=== PATIENT | male | born 1935 | race Caucasian/White ===

== ENCOUNTER → 2018-04-08 | Outpatient (CLI) | payer OTHER ==
[~2018-04-08] MED LIST: AMITRIPTYLINE H25 M2 PO; AUGMENTIN 875875 MG PO; BAYER CHEWABLE81 MG PO; FLEXERIL PO; FLOMAX0.4 MG PO; FLORINEF ACETA0.1 MG PO; GLUCOPHAGE500 MG PO; LEVOTHYROXIN0.125 M1 PO; LIPITOR40 MG PO; MECLIZINE HCL25 MG PO; MIDODRINE HCL 55 M1 PO; NAMENDA XR28 MG PO; NAPROSYN500 MG PO; RANEXA500 MG PO; VITAMIN D1000 UNI1 PO
== END ==
LOC: M.ULTRA 04-01 13:00
DX: I65.23 Occlusion and stenosis of bilateral carotid arteries (principal); E11.9 Type 2 diabetes mellitus without complications; E03.9 Hypothyroidism, unspecified

== ENCOUNTER → 2018-10-04 | Outpatient (CLI) | payer OTHER ==
[2018-10-04 15:21] LABS: ABSOLUTE EOSINOPHILS 0.1 thou/uL (0.0-0.7); ABSOLUTE LYMPHOCYTES 1.4 thou/uL (0.8-5.3); ABSOLUTE MONOCYTES 0.5 thou/uL (0.0-1.2); ABSOLUTE NEUTROPHILS 4.7 thou/uL (1.6-8.1); BASOPHILS 0.3 %; EOSINOPHILS 1.4 %; HEMATOCRIT 39.8 % (42.0-52.0); HEMOGLOBIN 13.6 gm/dL (14.0-18.0); LYMPHOCYTES 20.9 %; MCH 32.7 pg (26.0-34.0); MCHC 34.1 g/dL (28.0-37.0); MCV 95.7 fL (80.0-100.0); MONOCYTES 7.7 %; MPV 7.4 fl. (7.2-11.1); NUCLEATED RBCS 0 /100WBC; PLATELET COUNT* 189 thou/uL (150-400); POLYS 69.7 %; RBC 4.15 mil/uL (4.50-6.00); RDW-CV 13.4 % (10.5-14.5); WBC 6.7 thou/uL (4.0-11.0)
== END ==
LOC: M.LAB 14:54
PROVIDERS: Nurse Practitioner
DX: E03.9 Hypothyroidism, unspecified (principal); R53.83 Other fatigue

== ENCOUNTER 2018-11-02 12:15 | Inpatient (IN) | payer OTHER ==
[~2018-11-02] VITALS: Ht 172.7 cm; Wt 88.0 kg
[2018-11-02 12:47] VITALS: BP 98/63
[2018-11-02 13:46] LABS: URINE BILIRUBIN NEGATIVE (Negative); URINE BLOOD TRACE (Negative); URINE CLARITY CLEAR; URINE COLOR YELLOW; URINE GLUCOSE-RANDOM 3+ (Negative); URINE KETONES NEGATIVE (Negative); URINE LEUKOCYTES-REFLEX NEGATIVE (Negative); URINE NITRITE-REFLEX NEGATIVE (Negative); URINE PROTEIN NEGATIVE (Negative); URINE UROBILINOGEN 0.2 E.U./dl (0.2-1.0)
[2018-11-02 13:54] LABS: ABSOLUTE EOSINOPHILS 0.1 thou/uL (0.0-0.7); ABSOLUTE LYMPHOCYTES 1.2 thou/uL (0.8-5.3); ABSOLUTE MONOCYTES 0.4 thou/uL (0.0-1.2); ABSOLUTE NEUTROPHILS 4.5 thou/uL (1.6-8.1); BASOPHILS 0.6 %; EOSINOPHILS 1.1 %; HEMATOCRIT 38.4 % (42.0-52.0); HEMOGLOBIN 13.1 gm/dL (14.0-18.0); LYMPHOCYTES 19.5 %; MCH 32.7 pg (26.0-34.0); MCHC 34.1 g/dL (28.0-37.0); MCV 95.9 fL (80.0-100.0); MPV 7.6 fl. (7.2-11.1); NUCLEATED RBCS 0 /100WBC; PLATELET COUNT* 174 thou/uL (150-400); POLYS 71.8 %; RBC 4.01 mil/uL (4.50-6.00); RDW-CV 13.2 % (10.5-14.5); WBC 6.3 thou/uL (4.0-11.0)
[2018-11-02 14:12] LABS: ANION GAP 4 mmol/L (7-16); BUN 19 mg/dL (7-18); CHLORIDE 104 mmol/L (98-107); CO2 34 mmol/L (21-32); CREATININE 1.3 mg/dL (0.6-1.3); GLUCOSE 88 mg/dL (70-99); POTASSIUM 4.4 mmol/L (3.5-5.1); SODIUM 142 mmol/L (136-145); TROPONIN-I LEVEL <0.06 ng/mL (<0.06)
[2018-11-02 14:14] LABS: ALBUMIN 3.6 g/dL (3.4-5.0); ALKALINE PHOSPHATASE 119 U/L (46-116); NT-PRO BRAIN NAT PEPTIDE 135 pg/mL (<300); SGOT 17 U/L (15-37); SGPT 21 U/L (30-65); TOTAL BILIRUBIN 1.7 mg/dL (<0.1-1.0); TOTAL PROTEIN 6.9 g/dL (6.4-8.2)
--- NOTE | 2018-11-02 15:10 | NUR ---
PT REQUESTING FOOD, THIS WAS OK'D BY PROVIDER. PT GIVEN TURKEY SANDWICH AND POTATO CHIPS WITH WATER. PT ABLE TO FEED HIMSELF
--- NOTE | 2018-11-02 16:54 | EKG ---
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 11/02/18 1653 1336 1336 Norm Faust MD, FACC /EPI
--- NOTE | 2018-11-02 17:10 | NUR ---
PT STATED HE HIS BM WAS BLACK AT HIS BM AT 1620. THIS WAS NOTED IN YOUCALLMD TO DR. LY
--- NOTE | 2018-11-02 17:18 | NUR ---
SPOKE WITH DR. LY ON PHONE
--- NOTE | 2018-11-02 18:21 | NUR ---
PT GIVEN DINNER
[2018-11-02 18:48] VITALS: BP 127/65
[2018-11-02 20:00] VITALS: BP 126/57
[2018-11-02 21:00] VITALS: BP 119/67
--- NOTE | 2018-11-03 04:21 | NUR ---
PT ARRIVED FROM ER AT AROUND 2129. ASSESSMENT COMPLETED CHARTED. ABLE TO MAKE NEEDS KNOWN. NO C/O PAIN OR DISCOMFORT. UP WITH STANDBY ASSIST FOR USING URINAL AND GOING TO THE RESTROOM. DOESNT KNOW WHY HES HERE OR WHAT YEAR IT IS. IS RESTING IN BED AT THIS TIME BUT UNABLE TO SLEEP. WILL CONTINUE TO MONITOR.
[2018-11-03 05:20] LABS: ABSOLUTE EOSINOPHILS 0.1 thou/uL (0.0-0.7); ABSOLUTE LYMPHOCYTES 1.4 thou/uL (0.8-5.3); ABSOLUTE MONOCYTES 0.6 thou/uL (0.0-1.2); BASOPHILS 0.3 %; EOSINOPHILS 1.5 %; HEMATOCRIT 35.1 % (42.0-52.0); HEMOGLOBIN 11.9 gm/dL (14.0-18.0); LYMPHOCYTES 20.1 %; MCH 32.5 pg (26.0-34.0); MCV 95.6 fL (80.0-100.0); MONOCYTES 7.8 %; MPV 8.2 fl. (7.2-11.1); NUCLEATED RBCS 0 /100WBC; PLATELET COUNT* 152 thou/uL (150-400); POLYS 70.3 %; RBC 3.67 mil/uL (4.50-6.00); RDW-CV 13.3 % (10.5-14.5); WBC 7.1 thou/uL (4.0-11.0)
[2018-11-03 05:51] LABS: ANION GAP 7 mmol/L (7-16); BUN 16 mg/dL (7-18); CALCIUM 8.7 mg/dL (8.5-10.1); CHLORIDE 108 mmol/L (98-107); CO2 29 mmol/L (21-32); GLUCOSE 119 mg/dL (70-99); MAGNESIUM 1.8 mg/dL (1.8-2.4); POTASSIUM 3.9 mmol/L (3.5-5.1); SODIUM 144 mmol/L (136-145); TROPONIN-I LEVEL <0.06 ng/mL (<0.06)
[2018-11-03 08:15] VITALS: BP 119/66
--- NOTE | 2018-11-03 10:56 | NUR ---
Pt is A&O. Resides at home with his . Active and independent. No DME. No hx of HH or SNF. Goal is home at dc, no needs anticipated.
[2018-11-03 12:00] VITALS: BP 141/70
--- NOTE | 2018-11-03 13:29 | 2DMMODE ---
[place] [address] 2 D/M-MODE ECHOCARDIOGRAM Name: MASOOD Deysi Room: [address] IN [facility]#: [id number] Admission: 11/02/18 Attend Phys: Cleemnt Avalos MD Discharge: Date of : 39 Date of Service: 11/03/18 1329 Report #: [id number] THIS REPORT FOR: //name// APPROVED REPORT Study performed: 11/03/2018 10:44:40 EXAM: Comprehensive 2D, Doppler, and color-flow Echocardiogram Patient Location: In-Patient Room #: [facility] Status: routine BSA: 2.02 HR: 75 bpm BP: 119/66 mmHg Rhythm: NSR Other Information Study Quality: Good Indications Hypotension CAD 2D Dimensions IVSd: 10.61 (7-11mm) LVOT Diam: 22.80 (18-24mm) LVDd: 44.25 mm PWd: 8.43 (7-11mm) Ascending Ao: 33.45 (22-36mm) LVDs: 26.17 (25-40mm) Aortic Root: 38.12 mm Volumes Left Atrial Volume (Systole) LA ESV Index: 24.00 mL/m2 Aortic Valve AoV Peak Maico.: 1.07 m/s AO Peak Gr.: 4.56 mmHg LVOT Max P.75 mmHg AO Mean Gr.: 2.28 mmHg LVOT Mean P.24 mmHg LVOT Max V: 0.83 m/s AO V2 VTI: 21.67 cm LVOT Mean V: 0.51 m/s WILLIAM (VTI): 3.33 cm2 LVOT V1 VTI: 17.68 cm Mitral Valve E/A Ratio: 1.04 MV Decel. Time: 284.88 [place] [address] 2 D/M-MODE ECHOCARDIOGRAM Name: MASOOD PENNINGTON Room: [address] IN ..#: [id number] Admission: 11/02/18 Attend Phys: Clement Avalos MD Discharge: Date of : 39 Date of Service: 11/03/18 1329 Report #: [id number] MV E Max Maico.: 0.68 m/s MV PHT: 82.61 ms MVA (PHT): 2.66 cm2 TDI E/Lateral E': 6.18 E/Medial E': 5.67 Medial E' Maico.: 0.12 m/s Lateral E' Maico.: 0.11 m/s Pulmonary Valve PV Peak Maico.: 0.77 m/s PV Peak Gr.: 2.39 mmHg Tricuspid Valve RAP Estimate: 5.00 mmHg TR Peak Gr.: 20.41 mmHg RVSP: 25.00 mmHg PA Pressure: 25.00 mmHg Left Ventricle The left ventricle is normal size. There is normal LV segmental wall motion. There is normal left ventricular wall thickness. Left ventricular systolic function is normal. The left ventricular ejection fraction is within the normal range. LVEF is 55%. The left ventricular diastolic function is normal. Right Ventricle The right ventricle is normal size. The right ventricular systolic function is normal. Atria The left atrium size is normal. The right atrium size is normal. Aortic Valve Mild aortic valve sclerosis. Mild aortic regurgitation. There is no aortic valvular stenosis. Mitral Valve The mitral valve is normal in structure. Mild mitral regurgitation. No evidence of mitral valve stenosis. Tricuspid Valve The tricuspid valve is normal in structure. Trace tricuspid regurgitation. No pulmonary hypertension. Pulmonic Valve The pulmonary valve is normal in structure[place] [address] 2 D/M-MODE ECHOCARDIOGRAM Name: MASOOD PENNINGTON Room: [address]#: [id number] Admission: 11/02/18 Attend Phys: Clement Avalos MD Discharge: Date of : 39 Date of Service: 11/03/18 1329 Report #: [id number] regurgitation. Great Vessels Aortic root is borderline dilated. IVC is normal in size and collapses >50% with inspiration. Pericardium There is no pericardial effusion. <Conclusion> The left ventricle is normal size. There is normal left ventricular wall thickness. Left ventricular systolic function is normal. The left ventricular ejection fraction is within the normal range. LVEF is 55%. The left ventricular diastolic function is normal. The right ventricle is normal size. The left atrium size is normal. Mild aortic valve sclerosis. Mild aortic regurgitation. There is no aortic valvular stenosis. The mitral valve is normal in structure. Mild mitral regurgitation. No evidence of mitral valve stenosis. The tricuspid valve is normal in structure. IVC is normal in size and collapses >50% with inspiration. There is no pericardial effusion. There is normal LV segmental wall motion. <ELECTRONICALLY SIGNED> By: Norm Faust MD, FACC 11/03/18 1329 28 28 Norm Faust MD, FACC /INF
[2018-11-03 16:00] VITALS: BP 107/59
[2018-11-03 20:00] VITALS: BP 157/66
--- NOTE | 2018-11-03 20:21 | NUR ---
I ASSUMED CARE OF THE PATIENT AT 0700. HE IS ALERT TO PERSON AND PLACE. BED IS IN THE LOW LOCKED POSITION AND CALL LIGHT IS IN REACH. PATIENT DENIES PAIN. HOURLY ROUNDING WAS COMPLETED AND PATIENT NEEDS WERE MET. WILL CONTINUE TO MONITOR. WAS AT THE BEDSIDE MOST OF THE DAY. ECHO WAS COMPLETED AND MEDS ARE BEING ADJUSTED. BED ALARM AND CHAIR ALARM ARE BEING USED.
[2018-11-03 22:06] LABS: GLYCOHEMOGLOBIN (HGB A1C) 6.7 % (4.8-5.6)
[2018-11-03 23:36] VITALS: BP 137/68
[2018-11-04 04:00] VITALS: BP 142/80
--- NOTE | 2018-11-04 05:11 | NUR ---
ASSUMED PT CARE AT 1930. ASSESSMENT COMPLETED CHARTED. ABLE TO MAKE NEEDS KNOWN. UP WITH STANDBY ASSIST DUE TO ORTHOSTATIC HYPOTENSION. NO C/O PAIN OR DISCOMFORT. PT RESTING IN BED AT THIS TIME. VSS. WILL CONTINUE TO MONITOR.
--- NOTE | 2018-11-04 08:40 | CON ---
[address] [address] CONSULTATION Name: MASOOD PENNINGTON Room: [address] IN ..#: [id number] Admission: 11/02/18 Attend Phys: Clement Avalos MD Discharge: Date of : 37 Report #: [id number] THIS REPORT FOR: //name// CC: Johnny Avalos DATE OF SERVICE: 11/03/2018 NEUROLOGY CONSULT: HISTORY OF PRESENT ILLNESS: The patient is an 83-year-old male who came to the hospital yesterday after feeling lightheaded. The patient states that he has never had an episode like this before. In the past once when he had run up a flight of steps, he has felt short of air, but has never felt lightheaded. The patient had been walking down stairs when he tripped over a metal piece sticking out of his carpet and fell down several steps, he fell on to the back of his head. He takes meclizine 3 times a day for dizziness, but does not always take it as prescribed. In addition, after speaking to the nurse, the patient apparently has dementia and is on Namenda XR 28 mg at bedtime. The nurse states that his had mentioned to her that she really does not think the medication does anything. PAST MEDICAL HISTORY: Dementia, diabetes, hypothyroidism, prostate cancer, coronary artery disease, hyperlipidemia, orthostatic hypotension, hypothyroidism. ALLERGIES: None. PAST SURGICAL HISTORY: Cervical spine fusion, open heart surgery. MEDICATIONS: At home, atorvastatin 40 mg at bedtime, midodrine 10 mg t.i.d., metformin 500 mg daily, amitriptyline 100 mg at bedtime, Synthroid 100 mcg daily, aspirin 81 mg daily, meclizine 25 mg t.i.d., Namenda XR 28 mg daily, vitamin D 1000 units daily. PHYSICAL EXAMINATION: VITAL SIGNS: Blood pressure lying flat 132/68 with a heart rate of 73, blood pressure sitting 124/72 with a heart rate of 80, blood pressure standing 100/54 with a heart rate of 78, respiratory rate 16. Bedside pulse oximetry 99% on room air, temperature is 36.4. LABORATORY DATA: Hematology: White blood cell count 7.1, hemoglobin 11.9, hematocrit 35.1, MCV 95.6, platelet count 152,000. Urinalysis, trace blood, 3+ glucose. Chemistry: Sodium 144, potassium 3.9, chloride 108, carbon dioxide 29, BUN 16, creatinine 1, glucose 72, calcium 8.7, magnesium 1.8, total [facility] [address] [place] [address] CONSULTATION Name: MASOOD PENNINGTON Room: [address]#: [id number] Admission: 11/02/18 Attend Phys: Clement Avalos MD Discharge: Date of : 37 Report #: [id number] bilirubin 1.7, ALT 21, alkaline phosphatase 119. IMAGING: CT scan of the head is stable and demonstrates diffuse cerebral atrophy. NEUROLOGIC: Cranial nerves 2-12 are grossly intact. Motor exam demonstrates symmetrical strength in all 4 extremities with tone and bulk normal. Reflexes are trace throughout. Plantar responses are flexor. Coordination reveals intact [id number]. Gait was not tested. IMPRESSION: After speaking to the patient, my impression is that the patient tripped and fell. However, he does have a history of orthostatic hypotension and should go back on midodrine 10 mg 3 times a day. He should follow up with whoever prescribed this whether this is his primary care provider or research clerk. There are other measures the patient can take to improve orthostasis which include drinking cold water, wearing compression stockings and stopping his feet before he goes from a sitting to a standing position. I will also speak to his about the Namenda XR and explain to her that these medications do not improve memory, but slow down cognitive decline. I will also find out if he has been on donepezil because typically Namenda XR by itself does not work as well and does work better when it is combined with a cholinesterase inhibitor. However, he may have already tried one of these medications and not been able to tolerate it. I will try to document that in the progress note if I am able to speak with his . I thank you for your kind referral of the patient. <ELECTRONICALLY SIGNED> By: Denisa Reagan DO 11/04/18 0840 1017 [id number] Reagan DO /nt
[2018-11-04 09:19] VITALS: BP 122/79
[2018-11-04 09:38] VITALS: BP 112/56; BP 83/46
[2018-11-04] MEDS ORDERED: VITAMIN B-12500 MCG PO (12:16)
[2018-11-04 12:19] VITALS: BP 107/67
--- NOTE | 2018-11-04 12:50 | NUR ---
SPOKE WITH ON 11/04 @2100. STATED THAT SHE IS ALRIGHT WITH DISCHARGING THE PT ON HER END.
[2018-11-04 12:52] VITALS: BP 107/67
--- NOTE | 2018-11-04 13:54 | NUR ---
PT DISCHARGED FROM UNIT AT 1322 WITH . TAKEN IN WHEELCHAIR WITH VOLUNTEER. BELONINGS SENT WITH PT. DISCHARGED PAPERS SIGNED. PRESCRIPTIONS GIVEN. CONSULTS SIGNED OFF.
== END 2018-11-04 13:30 | disposition home or self-care (01) | DRG 312 ==
LOC: M.ERS 12:15 → M.TBA-ER 15:03 → M.2W 15:03
PROVIDERS: Nurse Practitioner; ADMIT Family Medicine
DX: I95.1 Orthostatic hypotension (principal); E03.9 Hypothyroidism, unspecified; F03.90 Unspecified dementia, unspecified severity, without behavioral disturbance, psychotic disturbance, mood disturbance, and anxiety; I25.10 Atherosclerotic heart disease of native coronary artery without angina pectoris; E78.5 Hyperlipidemia, unspecified; E11.22 Type 2 diabetes mellitus with diabetic chronic kidney disease; N18.3 Chronic kidney disease, stage 3 (moderate); E53.8 Deficiency of other specified B group vitamins; Z79.82 Long term (current) use of aspirin; Z85.46 Personal history of malignant neoplasm of prostate; Z90.49 Acquired absence of other specified parts of digestive tract; Z86.73 Personal history of transient ischemic attack (TIA), and cerebral infarction without residual deficits; Z95.1 Presence of aortocoronary bypass graft; Z79.899 Other long term (current) drug therapy

== ENCOUNTER 2018-12-11 10:57 | Observation (INO) | payer OTHER ==
[~2018-12-11] VITALS: Ht 172.7 cm; Wt 75.3 kg
[~2018-12-11 10:57] MED LIST changes: +VITAMIN B-12500 MCG PO
[2018-12-11 11:00] VITALS: BP 119/53
[2018-12-11 11:25] LABS: ABSOLUTE EOSINOPHILS 0.1 thou/uL (0.0-0.7); ABSOLUTE LYMPHOCYTES 1.4 thou/uL (0.8-5.3); ABSOLUTE MONOCYTES 0.5 thou/uL (0.0-1.2); ABSOLUTE NEUTROPHILS 4.9 thou/uL (1.6-8.1); BASOPHILS 0.6 %; EOSINOPHILS 1.6 %; HEMATOCRIT 39.3 % (42.0-52.0); HEMOGLOBIN 13.6 gm/dL (14.0-18.0); LYMPHOCYTES 20.5 %; MCH 32.9 pg (26.0-34.0); MCHC 34.6 g/dL (28.0-37.0); MCV 95.1 fL (80.0-100.0); MONOCYTES 7.1 %; MPV 7.9 fl. (7.2-11.1); NUCLEATED RBCS 0 /100WBC; PLATELET COUNT* 197 thou/uL (150-400); POLYS 70.2 %; RBC 4.13 mil/uL (4.50-6.00); RDW-CV 13.3 % (10.5-14.5)
[2018-12-11 11:47] LABS: ALBUMIN 3.5 g/dL (3.4-5.0); ALKALINE PHOSPHATASE 113 U/L (46-116); ANION GAP 5 mmol/L (7-16); BUN 15 mg/dL (7-18); CHLORIDE 104 mmol/L (98-107); CO2 32 mmol/L (21-32); CREATININE 1.1 mg/dL (0.6-1.3); GLUCOSE 189 mg/dL (70-99); LIPASE 83 U/L (73-393); MAGNESIUM 1.5 mg/dL (1.8-2.4); NT-PRO BRAIN NAT PEPTIDE 181 pg/mL (<300); POTASSIUM 4.1 mmol/L (3.5-5.1); SGOT 21 U/L (15-37); SGPT 28 U/L (30-65); SODIUM 141 mmol/L (136-145); TOTAL BILIRUBIN 1.9 mg/dL (<0.1-1.0); TOTAL PROTEIN 6.9 g/dL (6.4-8.2); TROPONIN-I LEVEL <0.06 ng/mL (<0.06)
[2018-12-11 13:05] VITALS: BP 108/54
[2018-12-11 14:00] VITALS: BP 119/51
[2018-12-11 18:33] VITALS: BP 105/59
[2018-12-11 20:52] VITALS: BP 108/54
[2018-12-11 23:52] VITALS: BP 124/63
[2018-12-12 04:00] VITALS: BP 91/62
[2018-12-12 04:36] LABS: ABSOLUTE EOSINOPHILS 0.1 thou/uL (0.0-0.7); ABSOLUTE LYMPHOCYTES 1.6 thou/uL (0.8-5.3); ABSOLUTE MONOCYTES 0.6 thou/uL (0.0-1.2); BASOPHILS 0.3 %; EOSINOPHILS 1.9 %; HEMOGLOBIN 12.8 gm/dL (14.0-18.0); LYMPHOCYTES 21.6 %; MCHC 34.5 g/dL (28.0-37.0); MCV 95.6 fL (80.0-100.0); MONOCYTES 8.6 %; MPV 8.4 fl. (7.2-11.1); NUCLEATED RBCS 0 /100WBC; PLATELET COUNT* 172 thou/uL (150-400); POLYS 67.6 %; RBC 3.87 mil/uL (4.50-6.00); RDW-CV 13.2 % (10.5-14.5); WBC 7.4 thou/uL (4.0-11.0)
[2018-12-12 05:08] LABS: CALCIUM 9.2 mg/dL (8.5-10.1); POTASSIUM 4.3 mmol/L (3.5-5.1)
[2018-12-12 08:00] VITALS: BP 123/55
[2018-12-12] MEDS ORDERED: NITROGLYCERIN0.4 MG SUBLING (09:35)
--- NOTE | 2018-12-12 12:13 | EKG ---
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
[2018-12-12 12:17] VITALS: BP 128/53
--- NOTE | 2018-12-12 15:32 | EKG ---
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: [facility] : 1935 Requested By: Augustine Rivas Order Number: [id number] Alvaro MD: Johnny Salgado Measurements Intervals [place] Rate: 53 P: 41 WV: 157 QRS: 23 QRSD: 90 T: 37 QT: 407 QTc: 383 Interpretive Statements Sinus rhythm Probable left atrial enlargement Compared to ECG 12/11/2018 11:00:50 No significant changes Electronically Signed On 12-12-2018 15:32:01 CDT by Johnny Salgado [email or web address] <ELECTRONICALLY SIGNED> By: Johnny Salgado MD, [facility] 12/12/18 1532 1143 1143 Johnny Salgado MD, [facility] /EPI
[2018-12-12 15:57] VITALS: BP 128/53
--- NOTE | 2018-12-12 16:53 | CARDNUC ---
[place] [address] CARDIAC NUCLEAR IMAGING REPORT Name: MASOOD Deysi Room: [address] IN [facility]#: [id number] Admission: 12/11/18 Attend Phys: Victor Manuel Adams, Discharge: Date of : 39 Date of Service: 12/12/18 1653 Report #: [id number] THIS REPORT FOR: //name// APPROVED REPORT Imaging Protocol: Rest Tc-99m/Stress Tc-99m 1 day Study performed: 12/12/2018 09:54:00 Indication: Chest pain Patient Location: In-Patient Room #: 215 Stress Tech: Jessica Hart Stress Nurse: China Julien RN Ht: 5 ft 8 in Wt: 185 lbs BSA: 1.98 m2 BMI: 28.12 Medical History Medical History: Angina, CAD s/p CABG, Diabetes, Fatigue, Former Smoker, HTN, Hyperlipidemia, Stroke/TIA, Weakness Medications: insulin, atorvastatin, asa 325 mg, metformin, NTG, hydralazine, midodrine. Allergies: No known drug allergies Cardiac Risk Factors: Age, DM, FHX of CAD, HTN, Hyperlipidemia, Past Smoker. Previous Cardiac Procedures: CABG Pretest Chest Pain Characteristics: No chest pain Exercise History: Sedentary Physical Disabilities: Legs, Back. Meds Held (24 hrs): none Resting Data Rest SPECT myocardial perfusion imaging was performed in supine position 30 minutes following the intravenous injection of 12.0 mCi of Tc-99m Sestamibi. Time of rest injection: 1250 The images were gated to evaluate regional wall motion and calculate left ventricular ejection fraction. Administration Route: IV Administration Site: Left Arm Pharmacologic Stress Pharmacologic stress test was performed by injecting Regadenoson 0.4 mg IV push over 10-15 seconds immediately followed by the intravenous injection of 30.9 mCi of Tc-99[place] [address] CARDIAC NUCLEAR IMAGING REPORT Name: MASOOD PENNINGTON Room: [address] IN [facility]#: [id number] Admission: 12/11/18 Attend Phys: Victor Manuel Adams, Discharge: Date of : 39 Date of Service: 12/12/18 1653 Report #: [id number] Time of stress injection: 1425 Administration Route: IV Administration Site: Left Arm Heart Rate at time of stress injection: 80 bpm. Gated Stress SPECT was performed 45 minutes after stress injection. The images were gated to evaluate regional wall motion and calculate left ventricular ejection fraction. Stress Test Details Stress Test: Pharmacologic stress testing performed using 0.4 mg of regadenoson per 5 mL given IV over 10 seconds. Reason for pharmacologic stress test: physical limitation, generalized weakness, Hx of falls, high fall risk.. HR Max Heart Rate (APMHR): 139 bpm Resting HR: 70 bpm Target HR (85% APMHR): 118 bpm Max HR Achieved: 90 bpm % of APMHR: 64 Recovery HR: 84 bpm HR response to stress: Normal HR response to stress BP Resting BP: 115/69 mmHg Max BP: 105/63 mmHg Recovery BP: 120/64 mmHg BP response to stress: Normal blood pressure response to stress. ECG Resting ECG: nsr Stress ECG: nsr ST Change: none Arrhythmia: none Recovery ECG: nsr Recovery ST Change: none Recovery Arrhythmia: none Clinical Reason for Termination: Completed protocol Stress Symptoms: Abdominal discomfort Exercise duration: 0 min 0 sec Exercise capacity: 1.00 METs Nurse Comments 83 year old male inpatient presented with HX of CP, Falls, TIA's/CVA. Patient tolerated sitting Lexiscan well[place] [address] CARDIAC NUCLEAR IMAGING REPORT Name: MASOOD PENNINGTON Room: [address]#: [id number] Admission: 12/11/18 Attend Phys: Victor Manuel Adams, Discharge: Date of : 39 Date of Service: 12/12/18 1653 Report #: [id number] PO caffeine. Patient escorted via wheelchair to Nuclear Medicine for images. Patient stable with no complaints at that time. Stress ECG Conclusion negative ecg Study Data At rest, the left ventricular ejection fraction was 75%.. Post stress, the left ventricular ejection was 76%.. SSS: 0 SRS: 0 SDS: 0 Perfusion Review of rest data reveals normal perfusion, without perfusion defects.Imaging obtained following vasodilator stress demonstrate a similar, uniform uptake of tracer without defects. Prone imaging was normal. LVEDV is normal.No segental wall motion abnormality seen. Wall Motion normal all segments (with exception of septum, has hx of sternotomy) Nuclear Conclusion ECG Findings: negative for ischemia Clinical Findings: negative for ischemia Nuclear Findings: negative for ischemia Exercise Capacity: not assessed Left Ventricular Function: normal Risk Study: low Negative perfusion nuclear stress test for ischemia or infarct. Low risk study. <Conclusion> negative ecg <ELECTRONICALLY SIGNED> By: Santana Collins MD, FACC 12/12/18 165 52 52 Santana Collins MD, FACC /INF
--- NOTE | 2018-12-13 15:53 | CON ---
[address] [address] CONSULTATION Name: MASOOD PENNINGTON Room: [address] Demetrius Kent#: [id number] Admission: 12/11/18 Attend Phys: Victor Manuel Adams MD Discharge: 12/12/18 Date of : 39 Report #: [id number] THIS REPORT FOR: //name// CC: Victor Manuel Shaw DATE OF SERVICE: 12/12/2018 PRIMARY CARE PHYSICIAN: Johnny Shaw M.D. HISTORY OF PRESENT ILLNESS: The patient is an 83-year-old white male came to the Emergency Room yesterday complaining of chest pain. The patient has an extensive past medical history. He initially was seen by Dr. Mendez in 2014 with shortness of breath. He underwent cardiac catheterization. He was found to have ejection fraction of 60% with diffuse coronary artery disease. He was referred to Dr. Norm Mckenzie and underwent 6-vessel bypass surgery including SOMMERS graft to the LAD in 2014. His postoperative course was complicated by atrial fibrillation and he was anticoagulated for several months. He has a history of orthostatic hypotension, has been on midodrine and Florinef in the past. He actually had a nuclear stress test in 2017 2 years after his bypass surgery that showed ejection fraction of 70% with no evidence of ischemia. He had an echocardiogram 2 months ago that showed ejection fraction of 55% with aortic sclerosis. The patient is not very active. He also has memory loss. He states he was doing well until yesterday morning. He was out in the yard. He noticed some pressure in his chest with pounding. Denied any diaphoresis, nausea. Denied any radiation discomfort. His brought him to the hospital and he was admitted. Denied any fever, cough, bleeding, leg pain. PAST MEDICAL HISTORY: He has had an appendectomy, back surgery, cholecystectomy, hyperlipidemia, diabetes, orthostatic hypotension, dementia. MEDICATIONS: Include aspirin, Lipitor, meclizine, Namenda, metformin, midodrine, Synthroid. ALLERGIES: He has no known drug allergies. FAMILY HISTORY: His brother had coronary bypass surgery. SOCIAL HISTORY: He is . He and his live in [place]. He is retired from [employer]. Quit smoking years ago. No alcohol abuse. REVIEW OF SYSTEMS: No history of stroke, asthma, peptic ulcer disease, liver disease, kidney disease, cancer, psychiatric illness, chronic skin condition. PHYSICAL EXAMINATION: GENERAL: Revealed an elderly male, lying in bed. [place] [address] CONSULTATION Name: MASOOD PENNINGTON Room: [address] Donte#: [id number] Admission: 12/11/18 Attend Phys: Victor Manuel Adams MD Discharge: 12/12/18 Date of : 39 Report #: [id number] VITAL SIGNS: Blood pressure was 100/60, pulse 60. He is afebrile. HEENT: He is anicteric. Conjunctivae pink. Mucous members moist. NECK: Veins do not appear distended. No carotid bruits. Neck supple. CHEST: Clear to auscultation. CARDIOVASCULAR: Regular rate and rhythm. ABDOMEN: Soft. EXTREMITIES: Had no edema. Dorsalis pedis pulse, 2+ bilaterally. SKIN: Warm, dry. NEUROLOGIC: Nonfocal. His ECG showed sinus rhythm. There was no ST or T-wave change. His workup, he had a carotid Doppler study performed last March that showed mild plaque, no high grade stenosis. He had a CT scan of the head done in October after a fall that showed atrophy, no acute abnormality. DICTATION ENDS HERE <ELECTRONICALLY SIGNED> By: Johnny Salgado MD, FACC 12/13/18 1553 0849 0102Dradha Salgado MD, FACC /nt
--- NOTE | 2018-12-13 15:53 | CON ---
[address] [address] CONSULTATION Name: MASOOD PENNINGTON Room: [address] Demetrius Kent#: [id number] Admission: 12/11/18 Attend Phys: Victor Manuel Adams MD Discharge: 12/12/18 Date of : 39 Report #: [id number] THIS REPORT FOR: //name// CC: Victor Manuel Shaw MD DATE OF SERVICE: 12/12/2018 HISTORY OF PRESENT ILLNESS: The patient is an 83-year-old white male who was brought to the Emergency Room yesterday complaining of chest pain. The patient initially presented in 2014 with shortness of breath. He was found to have coronary artery disease and underwent six-vessel bypass surgery. He has done well since that time. He actually had a stress test two years ago in 2017 that showed no ischemia with a normal ejection fraction. He was admitted yesterday after an episode of chest pressure and heart pounding. I was asked to see him for further evaluation and treatment. Denies exertional dyspnea. Denied the pain radiating to his arms. There was no relationship to food. He has had no bleeding, no fever or cough. He has had no syncope. PAST MEDICAL HISTORY: Significant for appendectomy, back surgery, cholecystectomy, hernia repair, hyperlipidemia, diabetes, prostate cancer, dementia, orthostatic hypotension. MEDICATIONS: Include aspirin, Lipitor, meclizine, Namenda, metformin, midodrine, Synthroid. ALLERGIES: He has no known drug allergies. FAMILY HISTORY: His brother had bypass surgery. SOCIAL HISTORY: He is . He and his live in [place], retired from [employer]. No smoking or alcohol abuse. REVIEW OF SYSTEMS: No history of stroke, asthma, peptic ulcer disease, liver disease, kidney disease, cancer, psychiatric illness, chronic skin condition. PHYSICAL EXAMINATION: GENERAL: Elderly male. VITAL SIGNS: Blood pressure 100/60, his pulse is 60. HEENT: He was anicteric. Conjunctivae pink. Mucous membranes moist. NECK: Veins not distended. No carotid bruits. Neck supple. CHEST: Clear to auscultation. CARDIAC: Regular rate and rhythm. ABDOMEN: Soft. EXTREMITIES: [place] [address] CONSULTATION Name: MASOOD PENNINGTON [address] [id number] Admission: 12/11/18 Attend Phys: Victor Manuel Adams MD Discharge: 12/12/18 Date of : 39 Report #: [id number] SKIN: Warm and dry. NEUROLOGIC: Nonfocal. ECG showed sinus rhythm. LABORATORY DATA: Troponin 0.06. Chest x-ray unremarkable. IMPRESSION AND RECOMMENDATION: 1. Chest pain. Recommend nuclear stress test. 2. Diabetes. 3. Hyperlipidemia. The patient is on a statin drug. 4. History of orthostatic hypotension. The patient is on midodrine and Florinef. 5. History of prostate cancer. <ELECTRONICALLY SIGNED> By: Johnny Slagado MD, FACC 12/13/18 1553 0854 1215Davidarian Salgado MD, FACC /nt
== END 2018-12-12 17:03 | disposition home or self-care (01) ==
LOC: M.ERS 10:57 → M.2W 12:19 → M.TBA-ER 12:19 → M.2W 13:23
PROVIDERS: Emergency Medicine Emergency Medical Services; ADMIT Internal Medicine
DX: I25.10 Atherosclerotic heart disease of native coronary artery without angina pectoris (principal); E11.9 Type 2 diabetes mellitus without complications; E03.9 Hypothyroidism, unspecified; I95.1 Orthostatic hypotension; E78.5 Hyperlipidemia, unspecified; F03.90 Unspecified dementia, unspecified severity, without behavioral disturbance, psychotic disturbance, mood disturbance, and anxiety; Z79.899 Other long term (current) drug therapy; Z79.82 Long term (current) use of aspirin; Z90.49 Acquired absence of other specified parts of digestive tract; Z86.73 Personal history of transient ischemic attack (TIA), and cerebral infarction without residual deficits; Z98.890 Other specified postprocedural states; Z90.89 Acquired absence of other organs; Z85.46 Personal history of malignant neoplasm of prostate

== ENCOUNTER 2018-12-24 15:38 | Emergency (ER) | payer OTHER ==
[~2018-12-24] VITALS: Ht 172.7 cm; Wt 86.2 kg
[~2018-12-24 15:38] MED LIST changes: +NITROGLYCERIN0.4 MG SUBLING
[2018-12-24 16:17] LABS: ABSOLUTE EOSINOPHILS 0.1 thou/uL (0.0-0.7); ABSOLUTE LYMPHOCYTES 1.4 thou/uL (0.8-5.3); ABSOLUTE MONOCYTES 0.5 thou/uL (0.0-1.2); ABSOLUTE NEUTROPHILS 4.2 thou/uL (1.6-8.1); BASOPHILS 0.4 %; HEMATOCRIT 39.2 % (42.0-52.0); HEMOGLOBIN 13.3 gm/dL (14.0-18.0); LYMPHOCYTES 22.1 %; MCH 32.5 pg (26.0-34.0); MCHC 34.1 g/dL (28.0-37.0); MCV 95.2 fL (80.0-100.0); MONOCYTES 8.2 %; MPV 8.2 fl. (7.2-11.1); NUCLEATED RBCS 0 /100WBC; PLATELET COUNT* 192 thou/uL (150-400); POLYS 67.3 %; RBC 4.11 mil/uL (4.50-6.00); WBC 6.2 thou/uL (4.0-11.0)
[2018-12-24 16:26] LABS: ANION GAP 7 mmol/L (7-16); BUN 16 mg/dL (7-18); CALCIUM 8.9 mg/dL (8.5-10.1); CHLORIDE 104 mmol/L (98-107); CO2 31 mmol/L (21-32); CREATININE 1.1 mg/dL (0.6-1.3); GLUCOSE 127 mg/dL (70-99); POTASSIUM 4.3 mmol/L (3.5-5.1); SODIUM 142 mmol/L (136-145)
[2018-12-24 16:37] LABS: ALBUMIN 3.5 g/dL (3.4-5.0); ALKALINE PHOSPHATASE 109 U/L (46-116); LIPASE 87 U/L (73-393); NT-PRO BRAIN NAT PEPTIDE 255 pg/mL (<300); SGOT 18 U/L (15-37); SGPT 25 U/L (30-65); TOTAL BILIRUBIN 1.7 mg/dL (<0.1-1.0); TOTAL PROTEIN 6.8 g/dL (6.4-8.2); TROPONIN-I LEVEL <0.06 ng/mL (<0.06)
[2018-12-24 16:43] LABS: INR 1.1; PROTIME 10.8 Seconds (9.20-11.50)
[2018-12-24 17:15] LABS: URINE BILIRUBIN NEGATIVE (Negative); URINE BLOOD 1+ (Negative); URINE CLARITY CLEAR; URINE COLOR STRAW; URINE GLUCOSE-RANDOM 3+ (Negative); URINE KETONES NEGATIVE (Negative); URINE LEUKOCYTES-REFLEX NEGATIVE (Negative); URINE NITRITE-REFLEX NEGATIVE (Negative); URINE PROTEIN NEGATIVE (Negative); URINE SPECIFIC GRAVITY <= 1.005 (1.005-1.030); URINE UROBILINOGEN 0.2 E.U./dl (0.2-1.0)
[2018-12-24 17:34] LABS: BACTERIA-REFLEX 1-9 Few /HPF (None Seen); MUCUS None Seen strn/LPF (None Seen); SQUAMOUS NONE SEEN /LPF (0-3); URINE RBC 0-2 Rare /HPF (0-2); URINE WBC-REFLEX None Seen /HPF (0-5)
[2018-12-24 17:35] LABS: CASTS None Seen /LPF (None Seen); CRYSTALS None Seen /LPF (None Seen)
[2018-12-24 19:01] VITALS: BP 132/49
--- NOTE | 2018-12-25 11:38 | EKG ---
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 12/25/18 1138 1544 1544 Santana Collins MD, [facility] /EPI
== END 2018-12-24 19:01 | disposition home or self-care (01) ==
LOC: M.ERS 15:38
PROVIDERS: Personal Emergency Response Attendant
DX: R07.89 Other chest pain (principal); M79.662 Pain in left lower leg; M79.661 Pain in right lower leg; E11.9 Type 2 diabetes mellitus without complications; E03.9 Hypothyroidism, unspecified; Z90.49 Acquired absence of other specified parts of digestive tract; Z85.46 Personal history of malignant neoplasm of prostate; Z86.73 Personal history of transient ischemic attack (TIA), and cerebral infarction without residual deficits

== ENCOUNTER → 2019-05-08 | Outpatient (CLI) | payer OTHER ==
[2019-05-08 12:35] LABS: CREATININE 1.1 mg/dL (0.6-1.3); POTASSIUM 3.8 mmol/L (3.5-5.1)
== END ==
LOC: M.LAB 12:13
PROVIDERS: Nurse Practitioner
DX: I95.1 Orthostatic hypotension (principal)

== ENCOUNTER → 2019-05-30 | Outpatient (CLI) | payer OTHER ==
[2019-05-30 09:58] LABS: CALCIUM 9.4 mg/dL (8.5-10.1); CREATININE 1.2 mg/dL (0.6-1.3); POTASSIUM 3.8 mmol/L (3.5-5.1)
== END ==
LOC: M.LAB 09:16
PROVIDERS: Nurse Practitioner
DX: I25.10 Atherosclerotic heart disease of native coronary artery without angina pectoris (principal)

== ENCOUNTER 2019-07-12 04:11 | Emergency (ER) | payer OTHER ==
[~2019-07-12] VITALS: Ht 172.7 cm; Wt 83.9 kg
[2019-07-12] MEDS ORDERED: FLORINEF ACETA0.1 MG PO (04:25)
[2019-07-12] MEDS ORDERED: AMITRIPTYLINE H25 M2 PO (04:25)
[2019-07-12 04:44] LABS: ABSOLUTE EOSINOPHILS 0.1 thou/uL (0.0-0.7); ABSOLUTE MONOCYTES 0.6 thou/uL (0.0-1.2); ABSOLUTE NEUTROPHILS 5.2 thou/uL (1.6-8.1); BASOPHILS 0.5 %; EOSINOPHILS 1.8 %; HEMATOCRIT 40.4 % (42.0-52.0); HEMOGLOBIN 13.6 gm/dL (14.0-18.0); LYMPHOCYTES 25.1 %; MCHC 33.6 g/dL (28.0-37.0); MCV 95.4 fL (80.0-100.0); MONOCYTES 7.4 %; MPV 7.7 fl. (7.2-11.1); NUCLEATED RBCS 0 /100WBC; PLATELET COUNT* 217 thou/uL (150-400); POLYS 65.2 %; RBC 4.24 mil/uL (4.50-6.00)
[2019-07-12 04:54] LABS: CALCIUM 8.8 mg/dL (8.5-10.1); POTASSIUM 3.8 mmol/L (3.5-5.1)
[2019-07-12 04:58] LABS: PROTIME 10.6 Seconds (9.20-11.50)
[2019-07-12 05:07] LABS: ALBUMIN 3.5 g/dL (3.4-5.0); TOTAL BILIRUBIN 1.2 mg/dL (<0.1-1.0); TOTAL PROTEIN 6.8 g/dL (6.4-8.2)
[2019-07-12 05:33] LABS: INFLUENZA A ANTIGEN Negative (Negative); INFLUENZA B ANTIGEN Negative (Negative)
[2019-07-12 07:21] VITALS: BP 125/57
--- NOTE | 2019-07-12 11:10 | EKG ---
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 : 1935 Requested By: Julee Garcia Order Number: [id number] MD: Johnny Salgado Measurements Intervals [place] Rate: 62 P: 44 SC: 151 QRS: 24 QRSD: 98 T: 49 QT: 405 QTc: 412 Interpretive Statements Sinus rhythm Compared to ECG 12/24/2018 15:44:23 No significant changes Electronically Signed On 07-12-2019 11:10:09 EGG PROCESSING SUPERVISOR by Johnny Salgado [email or web address] <ELECTRONICALLY SIGNED> By: Johnny Salgado MD, [facility] 07/12/19 1110 0426 0426 Johnny Salgado MD, FACC /EPI
== END 2019-07-12 07:23 | disposition home or self-care (01) ==
LOC: M.ERS 04:11
PROVIDERS: Emergency Medicine
DX: K06.8 Other specified disorders of gingiva and edentulous alveolar ridge (principal); E03.9 Hypothyroidism, unspecified; E11.9 Type 2 diabetes mellitus without complications; Z90.49 Acquired absence of other specified parts of digestive tract; Z85.46 Personal history of malignant neoplasm of prostate; Z86.73 Personal history of transient ischemic attack (TIA), and cerebral infarction without residual deficits

== ENCOUNTER → 2020-01-17 | Outpatient (CLI) | payer OTHER ==
--- NOTE | 2020-01-17 14:38 | 2DMMODE ---
[place] [address] 2 D/M-MODE ECHOCARDIOGRAM Name: MASOOD PENNINGTON Room: [facility]#: [id number] Admission: 01/17/20 Attend Phys: Ann Marie Casas RN Discharge: Date of : 39 Date of Service: 01/17/20 1436 Report #: [id number] THIS REPORT FOR: cc: Johnny Shaw MD, David L. MD Blick, David R. MD [facility] ~ APPROVED REPORT Study performed: 01/17/2020 11:01:22 EXAM: Comprehensive 2D, Doppler, and color-flow Echocardiogram Patient Location: Out-Patient BSA: 1.92 HR: 58 bpm BP: 134/87 mmHg Other Information Study Quality: Good Indications CAD 2D Dimensions IVSd: 11.21 (7-11mm) LVOT Diam: 20.11 (18-24mm) LVDd: 42.58 mm PWd: 10.05 (7-11mm) Ascending Ao: 32.37 (22-36mm) LVDs: 22.33 (25-40mm) Aortic Root: 27.60 mm Volumes Left Atrial Volume (Systole) LA ESV Index: 12.90 mL/m2 Aortic Valve AoV Peak Maico.: 1.01 m/s AO Peak Gr.: 4.07 mmHg LVOT Max P.18 mmHg AO Mean Gr.: 2.35 mmHg LVOT Mean P.34 mmHg LVOT Max V: 0.89 m/s AO V2 VTI: 22.25 cm LVOT Mean V: 0.52 m/s WILLIAM (VTI): 2.67 cm2 LVOT V1 VTI: 18.72 cm Mitral Valve E/A Ratio: 0.89 [place] [address] 2 D/M-MODE ECHOCARDIOGRAM Name: MASOOD PENNINGTON Room: [facility]#: [id number] Admission: 01/17/20 Attend Phys: Ann Marie Casas RN Discharge: Date of : 39 Date of Service: 01/17/20 1436 Report #: [id number] MV Decel. Time: 273.50 ms MV E Max Maico.: 0.54 m/s MV PHT: 79.31 ms MVA (PHT): 2.77 cm2 TDI E/Lateral E': 6.00 E/Medial E': 6.75 Medial E' Maico.: 0.08 m/s Lateral E' Maico.: 0.09 m/s Pulmonary Valve PV Peak Maico.: 0.72 m/s PV Peak Gr.: 2.04 mmHg Tricuspid Valve RAP Estimate: 5.00 mmHg TR Peak Gr.: 18.30 mmHg RVSP: 23.30 mmHg PA Pressure: 23.30 mmHg Left Ventricle The left ventricle is normal size. There is normal LV segmental wall motion. There is normal left ventricular wall thickness. Left ventricular systolic function is normal. The left ventricular ejection fraction is within the normal range. LVEF is 55-60%. Grade I - abnormal relaxation pattern. Right Ventricle The right ventricle is normal size. The right ventricular systolic function is normal. Atria The left atrium size is normal. The right atrium size is normal. Aortic Valve The aortic valve is normal in structure. Mild aortic regurgitation. There is no aortic valvular stenosis. Mitral Valve The mitral valve is normal in structure. Mild mitral regurgitation. No evidence of mitral valve stenosis. Tricuspid Valve The tricuspid valve is normal in structure. Mild tricuspid regurgitation[place] [address] 2 D/M-MODE ECHOCARDIOGRAM Name: MASOOD PENNINGTON Deysi Room: [facility]#: [id number] Admission: 01/17/20 Attend Phys: Ann Marie Casas RN Discharge: Date of : 39 Date of Service: 01/17/20 1436 Report #: [id number] The pulmonary valve is normal in structure. Mild pulmonic regurgitation. Great Vessels The aortic root is normal in size. IVC is normal in size and collapses >50% with inspiration. Pericardium There is no pericardial effusion. <Conclusion> LVEF is 55-60%. Mild aortic regurgitation. Mild mitral regurgitation. <ELECTRONICALLY SIGNED> By: Johnny Salgado MD, [facility] 01/17/20 1436 1436 1436 Johnny Salgado MD, [facility] /INF
== END ==
LOC: M.CRD 10:51
DX: I08.8 Other rheumatic multiple valve diseases (principal); I25.10 Atherosclerotic heart disease of native coronary artery without angina pectoris

== ENCOUNTER 2020-05-15 07:31 | Observation (INO) | payer OTHER ==
[~2020-05-15] VITALS: Ht 172.7 cm; Wt 80.3 kg
[2020-05-15 07:33] VITALS: BP 105/50
[2020-05-15] MEDS ORDERED: NORCO 10-325 T1 EACH PO (07:38)
[2020-05-15] MEDS ORDERED: MECLIZINE HCL25 M1 PO (07:38)
[2020-05-15 08:04] LABS: ABSOLUTE EOSINOPHILS 0.2 thou/uL (0.0-0.7); ABSOLUTE LYMPHOCYTES 2.3 thou/uL (0.8-5.3); ABSOLUTE MONOCYTES 0.5 thou/uL (0.0-1.2); ABSOLUTE NEUTROPHILS 5.2 thou/uL (1.6-8.1); BASOPHILS 0.4 %; EOSINOPHILS 1.8 %; HEMOGLOBIN 13.4 gm/dL (14.0-18.0); LYMPHOCYTES 28.3 %; MCH 32.8 pg (26.0-34.0); MCHC 34.3 g/dL (28.0-37.0); MCV 95.7 fL (80.0-100.0); MONOCYTES 6.6 %; MPV 8.1 fl. (7.2-11.1); NUCLEATED RBCS 0 /100WBC; PLATELET COUNT* 175 thou/uL (150-400); POLYS 62.9 %; RBC 4.08 mil/uL (4.50-6.00); RDW-CV 13.5 % (10.5-14.5); WBC 8.2 thou/uL (4.0-11.0)
[2020-05-15 08:24] LABS: CALCIUM 8.3 mg/dL (8.5-10.1); CREATININE 1.3 mg/dL (0.6-1.3); POTASSIUM 3.7 mmol/L (3.5-5.1)
[2020-05-15 08:34] LABS: ALBUMIN 3.3 g/dL (3.4-5.0); MAGNESIUM 1.7 mg/dL (1.8-2.4); TOTAL BILIRUBIN 1.7 mg/dL (<0.1-1.0); TOTAL PROTEIN 6.1 g/dL (6.4-8.2)
[2020-05-15 10:39] VITALS: BP 122/61
[2020-05-15 11:00] VITALS: BP 124/62
[2020-05-15 12:06] VITALS: BP 153/70
--- NOTE | 2020-05-15 17:10 | EKG ---
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
--- NOTE | 2020-05-15 17:10 | EKG ---
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 : 1935 Requested By: Abhilash Marr Order Number: [id number] MD: Norm Faust Measurements Intervals [place] Rate: 59 P: 32 TN: 168 QRS: 34 QRSD: 87 T: 56 QT: 413 QTc: 410 Interpretive Statements Sinus rhythm RSR' in V1 or V2, probably normal variant Compared to ECG 05/15/2020 07:37:37 RSR' in V1 or V2 now present Electronically Signed On 05-15-2020 17:10:14 CDT by Norm Faust [email or web address] <ELECTRONICALLY SIGNED> By: Norm Faust MD, [facility] 05/15/20 1710 Norm Faust MD, [facility] /EPI
--- NOTE | 2020-05-15 17:12 | EKG ---
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: : 1935 Requested By: Abhilash Marr Order Number: [id number] Alvaro MD: Norm Faust Measurements Intervals [place] Rate: 56 P: [place]: QRS: 33 QRSD: 76 T: 174 QT: 434 QTc: 419 Interpretive Statements Sinus or junctional rhythm Low voltage, extremity leads Baseline wander in lead(s) I,II,III,aVR,aVF,V1,V2,V3,V4,V5,V6 Compared to ECG 05/15/2020 07:38:31 Wandering baseline is noted Electronically Signed On 05-15-2020 17:11:57 CDT by Norm Faust [email or web address] <ELECTRONICALLY SIGNED> By: Norm Faust MD, [facility] 05/15/20 1711 1 1 Norm Faust MD, [facility] /EPI
[2020-05-15 17:17] VITALS: BP 101/53
[2020-05-15 20:49] VITALS: BP 95/55
[2020-05-16 00:26] VITALS: BP 107/61
[2020-05-16 04:53] VITALS: BP 107/59
[2020-05-16 05:13] LABS: HEMATOCRIT 31.3 % (42.0-52.0); MCH 33.7 pg (26.0-34.0); MCHC 35.4 g/dL (28.0-37.0); MCV 95.2 fL (80.0-100.0); MPV 8.1 fl. (7.2-11.1); RBC 3.29 mil/uL (4.50-6.00); RDW-CV 13.5 % (10.5-14.5); WBC 5.6 thou/uL (4.0-11.0)
[2020-05-16 05:20] LABS: ANION GAP 5 mmol/L (7-16); BUN 22 mg/dL (7-18); CALCIUM 8.4 mg/dL (8.5-10.1); CHLORIDE 106 mmol/L (98-107); CHOLESTEROL 89 mg/dL (<200); CO2 31 mmol/L (21-32); CREATININE 1.3 mg/dL (0.6-1.3); GLUCOSE 182 mg/dL (70-99); HDL CHOLESTEROL 47 mg/dL (>40); LDL CHOLESTEROL 35 mg/dL (<100); SODIUM 142 mmol/L (136-145); TC:HDL 1.9 Ratio (Not establshd); TRIGLYCERIDE 35 mg/dL (<150); VLDL 7 mg/dL (<40)
[2020-05-16 05:22] LABS: HEMOGLOBIN 11.1 gm/dL (14.0-18.0)
[2020-05-16 05:23] LABS: SERUM ASSESSMENT CLEAR
[2020-05-16 08:00] VITALS: BP 105/62
[2020-05-16] MEDS ORDERED: OMEPRAZOLE40 MG PO (08:25)
[2020-05-16 11:00] VITALS: BP 105/62
[2020-05-16 12:02] VITALS: BP 105/62
== END 2020-05-16 11:55 | disposition home or self-care (01) ==
LOC: M.ERS 07:31 → M.2W 09:10 → M.TBA-ER 09:10 → M.2W 10:50
PROVIDERS: Emergency Medicine Emergency Medical Services; ADMIT Internal Medicine; ATTEND Internal Medicine
DX: R07.89 Other chest pain (principal); E03.9 Hypothyroidism, unspecified; E11.22 Type 2 diabetes mellitus with diabetic chronic kidney disease; N18.2 Chronic kidney disease, stage 2 (mild); M47.892 Other spondylosis, cervical region; I25.10 Atherosclerotic heart disease of native coronary artery without angina pectoris; E78.5 Hyperlipidemia, unspecified; F03.90 Unspecified dementia, unspecified severity, without behavioral disturbance, psychotic disturbance, mood disturbance, and anxiety; R00.1 Bradycardia, unspecified; Z95.1 Presence of aortocoronary bypass graft; Z79.82 Long term (current) use of aspirin; Z79.84 Long term (current) use of oral hypoglycemic drugs; Z79.899 Other long term (current) drug therapy; Z20.828 Contact with and (suspected) exposure to other viral communicable diseases

== ENCOUNTER 2020-06-05 14:47 | Observation (INO) | payer OTHER ==
[~2020-06-05] VITALS: Ht 172.7 cm; Wt 88.0 kg
--- NOTE | ~2020-06-05 | PROC ---
[facility] [address] [place] [address] PROCEDURE REPORT Name: MASOOD PENNINGTON Room: [address] Demetrius Kent#: [id number] Admission: 06/05/20 Attend Phys: Ida Catherine Discharge: 06/06/20 Date of : 39 Report #: [id number] THIS REPORT FOR: //name// cc: Johnny Shaw MD, David L. MD ~ For GI report, please see the Provation report in Perceptive 7 content. By: 0649Medical Records Staff MADDIE /MARIA DEL CARMEN
[2020-06-05 14:47] VITALS: BP 115/58
[~2020-06-05 14:47] MED LIST changes: +MECLIZINE HCL25 M1 PO; +NORCO 10-325 T1 EACH PO; +OMEPRAZOLE40 MG PO
[2020-06-05 15:30] LABS: ABSOLUTE EOSINOPHILS 0.1 thou/uL (0.0-0.7); ABSOLUTE LYMPHOCYTES 1.4 thou/uL (0.8-5.3); ABSOLUTE MONOCYTES 0.5 thou/uL (0.0-1.2); ABSOLUTE NEUTROPHILS 5.5 thou/uL (1.6-8.1); BASOPHILS 0.3 %; EOSINOPHILS 1.4 %; HEMATOCRIT 36.6 % (42.0-52.0); HEMOGLOBIN 12.4 gm/dL (14.0-18.0); LYMPHOCYTES 18.4 %; MCH 32.4 pg (26.0-34.0); MCHC 33.8 g/dL (28.0-37.0); MONOCYTES 6.4 %; MPV 7.5 fl. (7.2-11.1); NUCLEATED RBCS 0 /100WBC; PLATELET COUNT* 174 thou/uL (150-400); POLYS 73.5 %; RBC 3.82 mil/uL (4.50-6.00); RDW-CV 13.5 % (10.5-14.5); WBC 7.5 thou/uL (4.0-11.0)
[2020-06-05 15:41] LABS: CALCIUM 8.5 mg/dL (8.5-10.1); CREATININE 1.2 mg/dL (0.6-1.3); POTASSIUM 4.4 mmol/L (3.5-5.1)
[2020-06-05 15:46] LABS: ALBUMIN 3.2 g/dL (3.4-5.0); TOTAL BILIRUBIN 2.3 mg/dL (<0.1-1.0); TOTAL PROTEIN 6.5 g/dL (6.4-8.2)
[2020-06-05 17:31] VITALS: BP 133/61
[2020-06-05 20:00] VITALS: BP 89/55
[2020-06-05 22:21] LABS: CALCIUM 8.5 mg/dL (8.5-10.1); CREATININE 1.2 mg/dL (0.6-1.3); POTASSIUM 3.5 mmol/L (3.5-5.1)
[2020-06-05 22:24] LABS: MAGNESIUM 1.9 mg/dL (1.8-2.4); PHOSPHORUS* 2.8 mg/dL (2.5-4.9)
[2020-06-06 00:39] VITALS: BP 143/71
[2020-06-06 04:21] VITALS: BP 90/51
[2020-06-06 04:50] LABS: HEMATOCRIT 34.1 % (42.0-52.0); HEMOGLOBIN 11.9 gm/dL (14.0-18.0); MCH 32.7 pg (26.0-34.0); MCHC 34.8 g/dL (28.0-37.0); MPV 7.7 fl. (7.2-11.1); RBC 3.62 mil/uL (4.50-6.00); RDW-CV 13.5 % (10.5-14.5); WBC 7.2 thou/uL (4.0-11.0)
[2020-06-06 06:00] LABS: CALCIUM 8.3 mg/dL (8.5-10.1); POTASSIUM 3.4 mmol/L (3.5-5.1); TOTAL PROTEIN 6.1 g/dL (6.4-8.2)
[2020-06-06 07:30] VITALS: BP 132/69
[2020-06-06 09:11] LABS: DIRECT BILIRUBIN 0.2 mg/dL (<0.1-0.3)
--- NOTE | 2020-06-06 10:37 | EKG ---
[place] [address] ELECTROCARDIOGRAM REPORT Name: MASOOD Jo Room: [address]R.#: [id number] Admission: 06/05/20 Attend Phys: Ian Ponce Discharge: Date of : 39 Date of Service: 06/05/20 1451 Report #: [id number] THIS REPORT FOR: //name// [facility] ED Test Date: 2020-06-05 Test Time: 14:51:39 Pat Name: MASOOD PENNINGTON Department: Room: [facility] Gender: M Ceo [place]: : 1935 Requested By: Abhilash Marr Order Number: [id number] MD: Pacheco Nava Measurements Intervals [place] Rate: 55 P: 35 [place]: 163 QRS: 21 QRSD: 95 T: 42 QT: 433 QTc: 415 Interpretive Statements Sinus rhythm Baseline wander in lead(s) III Compared to ECG 05/15/2020 08:22:59 Junctional rhythm no longer present Electronically Signed On 06-06-2020 10:37:02 CDT by Pacheco Nava [email or web address] <ELECTRONICALLY SIGNED> By: Analilia Nava MD, [facility]ACC 06/06/20 1037 1451 1451 Analilia Nava MD, [facility] /EPI
--- NOTE | 2020-06-06 10:38 | EKG ---
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 Pacheco Nava MD, FACC /EPI
--- NOTE | 2020-06-06 11:19 | 2DMMODE ---
[place] [address] 2 D/M-MODE ECHOCARDIOGRAM Name: MASOOD PENNINGTON Room: [address] M.R.#: [id number] Admission: 06/05/20 Attend Phys: Ian Ponce Discharge: Date of : 39 Date of Service: 06/06/20 1119 Report #: [id number] THIS REPORT FOR: cc: Johnny Shaw MD, David L. MD Biggs, F. Douglas MD [facility] ~ APPROVED REPORT Study performed: 06/06/2020 09:52:00 EXAM: Comprehensive 2D, Doppler, and color-flow Echocardiogram Patient Location: Bedside BSA: 2.02 HR: 58 bpm BP: 132/69 mmHg Other Information Study Quality: Adequate Technically limited study due to inability to position patient. Indications Chest Pain 2D Dimensions IVSd: 11.28 (7-11mm) LVOT Diam: 20.96 (18-24mm) LVDd: 43.45 mm PWd: 9.71 (7-11mm) Ascending Ao: 33.53 (22-36mm) LVDs: 29.96 (25-40mm) Aortic Root: 29.98 mm Volumes Left Atrial Volume (Systole) LA ESV Index: 19.30 mL/m2 Aortic Valve AoV Peak Maico.: 0.71 m/s AO Peak Gr.: 2.00 mmHg LVOT Max P.00 mmHg AO Mean Gr.: 1.11 mmHg LVOT Mean P.81 mmHg LVOT Max V: 0.71 m/s AO V2 VTI: 15.96 cm LVOT Mean V: 0.40 m/s WILLIAM (VTI): 3.21 cm2 LVOT V1 VTI: 14.86 [place] [address] 2 D/M-MODE ECHOCARDIOGRAM Name: MASOOD PENNINGTON [address]#: [id number] Admission: 06/05/20 Attend Phys: Ian Ponce Discharge: Date of : 39 Date of Service: 06/06/20 1119 Report #: [id number] Mitral Valve E/A Ratio: 0.99 MV Decel. Time: 198.91 ms MV E Max Maico.: 0.68 m/s MV PHT: 57.68 ms MVA (PHT): 3.81 cm2 TDI E/Lateral E': 5.23 E/Medial E': 8.50 Medial E' Maico.: 0.08 m/s Lateral E' Maico.: 0.13 m/s Pulmonary Valve PV Peak Maico.: 0.60 m/s PV Peak Gr.: 1.42 mmHg Tricuspid Valve RAP Estimate: 5.00 mmHg TR Peak Gr.: 14.92 mmHg RVSP: 19.92 mmHg PA Pressure: 19.92 mmHg Left Ventricle The left ventricle is normal size. Regional wall motion abnormalities are noted. A distal septal wall motion abnormality is suspected. There is normal left ventricular wall thickness. Left ventricular systolic function is normal. The left ventricular ejection fraction is within the normal range. LVEF is 50-55%. Grade I - abnormal relaxation pattern. Right Ventricle The right ventricle is normal size. The right ventricular systolic function is normal. Atria The left atrium size is normal. The right atrium size is normal. Aortic Valve The Aortic valve is sclerotic. Trace aortic regurgitation. There is no aortic valvular stenosis. Mitral Valve The mitral valve is normal in structure. Mild mitral regurgitation. No evidence of mitral valve stenosis. Tricuspid Valve The tricuspid valve is normal in structure[place] [address] 2 D/M-MODE ECHOCARDIOGRAM Name: MASOOD PENNINGTON Room: [address]#: [id number] Admission: 06/05/20 Attend Phys: Ian Ponce Discharge: Date of : 39 Date of Service: 06/06/20 1119 Report #: [id number] regurgitation. Pulmonic Valve The pulmonary valve is normal in structure. Trace pulmonic regurgitation. Great Vessels The aortic root is normal in size. IVC is normal in size and collapses >50% with inspiration. Pericardium There is no pericardial effusion. <Conclusion> LVEF is 50-55%. Grade I - abnormal relaxation pattern. The left ventricle is normal size. There is normal left ventricular wall thickness. Regional wall motion abnormalities are noted. A distal septal wall motion abnormality is suspected. The Aortic valve is sclerotic. There is no aortic valvular stenosis. Trace aortic regurgitation. Mild mitral regurgitation. Trace tricuspid regurgitation. Trace pulmonic regurgitation. <ELECTRONICALLY SIGNED> By: Analilia Nava MD, [facility]ACC 06/06/20 1119 18 18 Analilia Nava MD, [facility]ACC /INF
[2020-06-06 12:03] VITALS: BP 139/73
[2020-06-06 15:30] VITALS: BP 139/73
--- NOTE | 2020-06-06 15:34 | CARDNUC ---
[place] [address] CARDIAC NUCLEAR IMAGING REPORT Name: MASOOD PENNINGTON Room: [address]R.#: [id number] Admission: 06/05/20 Attend Phys: Ian Ponce Discharge: Date of : 39 Date of Service: 06/06/20 1533 Report #: [id number] THIS REPORT FOR: cc: Johnny Shaw MD, David L. MD Biggs, F. Douglas MD [facility] ~ APPROVED REPORT Study performed: 06/06/2020 13:54:59 Exam: Nuclear Stress Test Indication: Chest pain Patient Location: In-Patient Room #: [facility] Stress Tech: Jessica Hart Stress Nurse: Madison Gan RN NM Tech:CLAYTON Phillip Ht: 5 ft 8 in Wt: 194 lbs BSA: 2.02 m2 BMI: 29.49 Medical History Medical History: CAD s/p stent, Diabetic Noninsulin, CAD s/p CABG Medications: asa-81 Allergies: No known drug allergies Cardiac Risk Factors: Age, Diabetes (non-insulin), Tobacco History (Former) Previous Cardiac Procedures: CABG, PCI, Myocardial infarction Exercise History: Sedentary Stress Test Details Stress Test: Pharmacologic stress testing performed using 0.4 mg of regadenoson per 5 mL given IV over 10 seconds. Reason for pharmacologic stress test: physical limitation. HR Resting HR: 66 bpm Max Heart Rate (APMHR): 138 bpm Max HR Achieved: 83 bpm Target HR (85% APMHR): 117 bpm % of APMHR: 60 Recovery HR: 82 bpm HR response to stress: Normal [place] [address] CARDIAC NUCLEAR IMAGING REPORT Name: MASOOD PENNINGTON [address] [id number] Admission: 06/05/20 Attend Phys: Ian Ponce Discharge: Date of : 39 Date of Service: 06/06/20 1533 Report #: [id number] Resting BP: 142/79 mmHg Max BP: 100/55 mmHg BP response to stress: Abnormal hypotensive response to stress. ECG Resting ECG: Sinus Rhythm, normal EKG Stress ECG: Sinus Rhythm, normal EKG ST Change: None Maximum ST Deviation: 0 mm Arrhythmia: None Recovery ECG: Sinus Rhythm, normal EKG Recovery ST Change: None Recovery ST Deviation: 0 mm Recovery Arrhythmia: None Clinical Reason for Termination: Completed protocol Stress Symptoms: None Stress ECG Conclusion Clinical: Non-ischemic Non-diagnostic pharmacologic EKG stress due to failure to attain target HR. NM EXAM: Myocardial Perfusion REST/STRESS Imaging Protocol: Rest Tc-99m/Stress Tc-99m 1 day Resting Data Rest SPECT myocardial perfusion imaging was performed in supine position 30 minutes following the intravenous injection of 11.6 mCi of Tc-99m Sestamibi. Time of rest injection: 1020 Date: 06/06/2020 The images were gated to evaluate regional wall motion and calculate left ventricular ejection fraction. Administration Route: IV Administration Site: [facility] Pharmacologic Stress Pharmacologic stress test was performed by injecting Regadenoson 0.4 mg IV push followed by the intravenous injection of 36.0 mCi of Tc-99m Sestamibi. Time of stress injection: 1345 Date: 06/06/2020 Administration Route: IV Administration Site: [place] [address] CARDIAC NUCLEAR IMAGING REPORT Name: MASOOD PENNINGTON Room: [address]#: [id number] Admission: 06/05/20 Attend Phys: Ian Ponce Discharge: Date of : 39 Date of Service: 06/06/20 1533 Report #: [id number] Gated Stress SPECT was performed 40 minutes after stress injection. The images were gated to evaluate regional wall motion and calculate left ventricular ejection fraction. Prone imaging was performed. Study Quality Study: Good Artifact: Mild Diaphragmatic artifact Lung Uptake: Normal Study Data At rest, the left ventricular ejection fraction was 73%.. Post stress, the left ventricular ejection was 68%.. SSS: 1 SRS: 0 SDS: 1 TID = 0.94. Perfusion The resting study demonstrates a small mild inferior defect. The post-rest images also demonstrate a small mild inferior defect. Prone images were obtained and demonstrate a very small very mild inferior defect. The inferior defect seen on this study represents some diaphragmatic attenuation artifact I believe. There were no reversible defects seen there was no evidence of myocardial ischemia. There was no significant segmental wall motion abnormality seen on these images. Images were reviewed using [employer] cities. Wall Motion Normal left ventricular wall motion.Normal left ventricular size and function with no regional wall motion abnormalities. There is a small area of in the segment of the wall which is seen on . Nuclear Conclusion ECG Findings: non-diagnostic Clinical Findings: negative for ischemia Nuclear Findings: negative for ischemia Exercise Capacity: not assessed Left Ventricular Function: normal Risk Study: low Normal study. No scintigraphic evidence for myocardial [place] [address] CARDIAC NUCLEAR IMAGING REPORT Name: MASOOD PENNINGTON Room: [address]#: [id number] Admission: 06/05/20 Attend Phys: Ian Ponce Discharge: Date of : 39 Date of Service: 06/06/20 1533 Report #: [id number] <Conclusion> Clinical: Non-ischemic Non-diagnostic pharmacologic EKG stress due to failure to attain target HR. <ELECTRONICALLY SIGNED> By: Analilia Nava MD, ISAIAS 06/06/201532 32 32 Analilia Nava MD, ISAIAS /INF
[2020-06-06] MEDS ORDERED: PROTONIX40 M2 PO (16:39)
[2020-06-06 16:40] VITALS: BP 139/73
--- NOTE | 2020-06-06 17:14 | EKG ---
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
--- NOTE | 2020-06-06 17:31 | CON ---
[address] [address] CONSULTATION Name: MASOOD PENNINGTON Room: [address] Donte#: [id number] Admission: 06/05/20 Attend Phys: Ida Catherine Discharge: Date of : 39 Report #: [id number] THIS REPORT FOR: //name// cc: Johnny Shaw MD, David L. MD ~ DATE OF SERVICE: 06/06/2020 Please note at the time of this dictation, the patient was seen and physically examined by myself. REASON FOR CONSULTATION: Noncardiac chest pain. HISTORY OF PRESENT ILLNESS: This is an 84-year-old male who presented to the Emergency Room with chest pain and some hypotension. He began having some bilateral chest discomfort in the mid to lower chest region. He said it started yesterday morning. He described it as being sharp and heavy. He states that it eased up quite a bit when he got here, but prompted him to come in to be further evaluated. The patient states that he denied any issues with acid reflux. No difficulty swallowing. No upset stomach. No nausea or vomiting or any abdominal pain. He denies any issues with his bowels. He says they have been normal, soft, and formed on a daily basis. He has had Cardiology see him and feel that it is not heart related at this time. At the time of this dictation and consultation, the patient was free from any chest discomfort at this time and was feeling completely fine. ALLERGIES: No known drug allergies. MEDICATIONS: From home include amitriptyline, Glucophage, Synthroid, and a bare chewable aspirin. PAST MEDICAL HISTORY: Non-insulin dependent diabetic and hypothyroidism. He has had a history of prostate cancer with radiation. He has had a stroke with some TIAs and coronary artery disease. PAST SURGICAL HISTORY: He has had a CABG, cholecystectomy, and a cervical spine fusion. FAMILY HISTORY: Negative for any GI or female cancers. SOCIAL HISTORY: He is a former smoker. Denies any alcohol or illegal drug use and lives with his . REVIEW OF SYSTEMS: Twelve-point review of systems is essentially negative except what is mentioned in the HPI. PHYSICAL EXAMINATION: [place] [address] CONSULTATION Name: MASOOD PENNINGTON Room: [address]#: [id number] Admission: 06/05/20 Attend Phys: Ida Catherine Discharge: Date of : 39 Report #: [id number] VITAL SIGNS: Temperature 36.4, pulse 57, respirations 17, blood pressure 90/51. HEART: Regular rate and rhythm. LUNGS: Clear. ABDOMEN: Soft, positive bowel sounds in all 4 quadrants with no masses or tenderness noted. LABORATORY DATA: Hemoglobin 11.9, white count 7.2, platelets 165. GFR is 72. Total bilirubin is 2, alkaline phosphatase 97, ALT 18, and AST is 10. IMPRESSION: 1. Chest pain, noncardiac, resolved. 2. History of colon polyps. 3. Elevated bilirubin. 4. Prostate cancer with radiation therapy. PLAN: 1. EGD today around 1300. 2. We will check direct and indirect bilirubin. 3. Further recommendations to be made after the procedure has been performed. Thank you for allowing us to participate in this patient's care. Please do not hesitate to call with any questions in regard to this consult. Agree with above assessment and plan by Danna Burgess Low direct bilirubin, mostly indirect bilirubinemia. 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 No further work up necessary. <ELECTRONICALLY SIGNED> By: Matti Zimmerman MD 06/06/20 1731 0837 [id number] Zimmerman MD /nt
[2020-06-07 13:08] LABS: ANA INTERPRETATION Negative (Negative)
--- NOTE | 2020-06-10 12:47 | CON ---
[address] [address] CONSULTATION Name: MASOOD PENNINGTON Room: [address] Demetrius Kent#: [id number] Admission: 06/05/20 Attend Phys: Ida Catherine Discharge: 06/06/20 Date of : 39 Report #: [id number] THIS REPORT FOR: //name// cc: Johnny Shaw MD, David L. MD ~ DATE OF SERVICE: 06/05/2020 CARDIOLOGY CONSULTATION HISTORY OF PRESENT ILLNESS: The patient is an 84-year-old white male who I was asked to see in the Emergency Room today after complaining of chest pain. The patient has an extensive past medical history. He apparently had a series of stents and eventually underwent coronary artery bypass surgery at [facility] almost 10 years ago. He is not very active at this time because of dementia and arthritis. He also has a history of dementia. He has a history of orthostatic hypotension, is on midodrine. He has fallen in the past. I actually just saw him in the office a month ago. His complains that he is tired all the time and sleeps all day long. He was doing well until this morning. He woke up and had a pain on the right side of his chest. It is worse when he laid down. It lasted all day long. It went into his right shoulder. He denied any trauma to his chest. The pain was not related to lifting. It is not related to food. He has had no associated shortness of breath, diaphoresis, nausea. He noticed no rash. He called the EMS and brought to [place] for further evaluation and treatment. At the current time, he continues to have the chest discomfort. PAST MEDICAL HISTORY: He has had appendectomy, back surgery, cholecystectomy and hernia repair. He has a history of diabetes, prostate cancer, hyperlipidemia. MEDICATIONS AT HOME: Include aspirin, Lipitor, Synthroid, Namenda, metformin, midodrine. ALLERGIES: He has no known drug allergies. FAMILY HISTORY: Negative for heart disease. SOCIAL HISTORY: He is . He and his live in [place]. Quit smoking years ago. No alcohol abuse. REVIEW OF SYSTEMS: No history of stroke, asthma, liver disease, kidney disease, chronic skin condition. PHYSICAL EXAMINATION: GENERAL: Revealed an elderly, frail-appearing male, lying in bed. He appeared in mild distress secondary [place] [address] CONSULTATION Name: MASOOD PENNINGTON Room: [address]#: [id number] Admission: 06/05/20 Attend Phys: Ida Catherine Discharge: 06/06/20 Date of : 39 Report #: [id number] VITAL SIGNS: His blood pressure 110/60, pulse is 60. He was afebrile. HEENT: He is anicteric. Conjunctivae are pink. Mucous members moist. NECK: Supple. CHEST: Clear to auscultation. CARDIOVASCULAR: Regular rate and rhythm without murmur or rub. ABDOMEN: Soft. EXTREMITIES: Had no edema. Posterior tibial pulse 1+ bilaterally. SKIN: Cool and dry. NEUROLOGIC: Nonfocal. RADIOLOGICAL DATA: ECG shows sinus bradycardia, early repolarization. No significant ST or T-wave changes were noted. His chest x-ray in the Emergency Room today showed cardiomegaly, otherwise clear lung rosales. His CT scan of the head done a year ago here at [place] showed cerebral atrophy, no acute abnormality. He had an echocardiogram done in January of this year that showed normal left ventricular function with mild aortic and mitral regurgitation. His last nuclear stress test in 11/2018 here at [place] showed stress with adenosine. Ejection fraction 76% with no evidence of ischemia. LABORATORY WORK: Sodium 139, creatinine 1.2, glucose 260. His troponins all 0.06. His white blood cell count 7.5, hematocrit 36.6. IMPRESSION AND RECOMMENDATIONS: 1. Chest pain. Suspect noncardiac. The patient has had chest pain all day long with no rise in troponin. ECG is normal with no ST segment changes. Possible musculoskeletal pain. Pain does not suggest a gastrointestinal source. 2. History of orthostatic hypotension. The patient is on midodrine. 3. Hyperlipidemia. The patient is on a statin drug. 4. Diabetes. 5. Dementia. 6. History of prostate cancer. 7. Sinus bradycardia. If symptomatic, he would require a pacemaker. <ELECTRONICALLY SIGNED> By: Johnny Salgado MD, FACC 06/10/20 1247 1642 [id number] Salgado MD, FACC /nt
--- NOTE | 2020-06-11 15:07 | PATH ---
[facility] [address] [place] [address] PATHOLOGY RPT PROCEDURE Name: MASOOD PENNINGTON Room: [address] Demetrius Kent#: [id number] Admission: 06/05/20 Date of : 39 Discharge: 06/06/20 Report #: [id number] Path Case #: [id number] [facility] Accession Number: [id number] . 01 Material submitted: . stomach - GASTRIC BIOPSY FOR H. PYLORI . 01 Clinical history: . CHEST PAIN . 02 Diagnosis: Gastric biopsy: - Severe chronic active gastritis with abundant Helicobacter pylori organisms identified, negative for granulomas and dysplasia. . (CAYLA:mmhelen; 06/10/2020) [facility] 06/11/2020 1446 Local . 02 Comment: Special stain: H. pylori immuno. . (CAYLA:mml; 06/10/2020) . 02 Electronically signed: . Oliver Vizcarra MD, Pathologist NPI- [id number] . 01 Gross description: . The specimen is received in formalin, labeled " Masood, gastric biopsy" and consists of 2 fragments of pink-dodson tissue measuring 0.4 x 0.2 cm and 0.5 x 0.2 cm which are entirely submitted in A1. (SDY; 06/07/2020) SYU/SYU 06/07/2020 1537 Local . 02 Pathologist provided ICD-10: K29.50 . 02 CPT . 621404, [id number] Specimen Comment: A courtesy copy of this report has been sent to [phone], [phone] Specimen Comment: [phone], Specimen Comment: Report sent to ,DR PERLA / DR AQUINO Performed at: [address] [id number] MD Horacio Agudelo MD Phone: [phone] Performed at: [address] [place] [address] PATHOLOGY RPT PROCEDURE Name: MASOOD PENNINGTON Helen Room: [address] M.R.#: [id number] Admission: 06/05/20 Date of : 39 Discharge: 06/06/20 Report #: [id number] Path Case #: [id number] [address], [place] [id number] MD Oliver Vizcarra MD Phone: [phone]
== END 2020-06-06 18:30 | disposition home or self-care (01) ==
LOC: M.ERS 14:47 → M.2W 16:05 → M.TBA-ER 16:05 → M.2W 17:50
PROVIDERS: Emergency Medicine Emergency Medical Services; Internal Medicine; Nurse Practitioner Adult Health; ADMIT Internal Medicine; ATTEND Internal Medicine
DX: K29.50 Unspecified chronic gastritis without bleeding (principal); R07.89 Other chest pain; K22.4 Dyskinesia of esophagus; I95.9 Hypotension, unspecified; E11.65 Type 2 diabetes mellitus with hyperglycemia; R00.1 Bradycardia, unspecified; E03.9 Hypothyroidism, unspecified; I25.10 Atherosclerotic heart disease of native coronary artery without angina pectoris; Z95.1 Presence of aortocoronary bypass graft; Z79.82 Long term (current) use of aspirin; Z79.899 Other long term (current) drug therapy